=== PATIENT | male | born 1980 | race Caucasian/White ===

== ENCOUNTER 2018-12-28 15:03 | Emergency (ER) | payer BC ==
[~2018-12-28] VITALS: Ht 188 cm; Wt 111.1 kg
== END 2018-12-28 18:44 | disposition home or self-care (01) ==
LOC: ER 15:03
DX: S92.344A Nondisplaced fracture of fourth metatarsal bone, right foot, initial encounter for closed fracture (principal); X50.0XXA Overexertion from strenuous movement or load, initial encounter; Y93.18 Activity, surfing, windsurfing and boogie boarding; Y92.832 Beach as the place of occurrence of the external cause; Y99.8 Other external cause status